=== PATIENT | male | born 1955 | race Caucasian/White ===

== ENCOUNTER → 2016-12-08 | Outpatient (CLI) | payer MEDICAID ==
[~2016-12-08] MED LIST: DIAZ10TA PO; IPRA3AMP NPPB; LEVO750T26 PO; METH500T97 PO; MORP30TA PO; MORP60TA PO; NICO-486 TD
== END | disposition home or self-care (01) ==
LOC: RAD 12:52
PROVIDERS: ATTEND Family Medicine
DX: M25.571 Pain in right ankle and joints of right foot (principal); G89.29 Other chronic pain

== ENCOUNTER 2016-12-09 14:01 | Emergency (ER) | payer MEDICAID ==
[~2016-12-09] VITALS: Ht 188 cm; Wt 86.0 kg
[2016-12-09 14:03] VITALS: BP 114/75
== END 2016-12-09 14:51 | disposition home or self-care (01) ==
LOC: ED 14:30
DX: M25.571 Pain in right ankle and joints of right foot (principal)
CPT/HCPCS: 99281

== ENCOUNTER 2017-02-14 14:03 | Emergency (ER) | payer MEDICAID ==
[~2017-02-14] VITALS: Ht 188 cm; Wt 86.0 kg
[2017-02-14] MEDS ORDERED: KETAMINE 10 MG/ML, 20ML ONE (14:47)
[2017-02-14] MEDS ORDERED: KETAMINE 100 MG/ML, 5ML IV ONE (15:00)
[2017-02-14] MEDS ORDERED: DEXAMETHASONE 4 MG/ML, 5ML ONE (15:44)
[2017-02-14] MEDS ORDERED: DEXAMETHASONE 4 MG/ML, 1ML IVPush ONE (16:00)
[2017-02-14 16:47] VITALS: BP 114/75
== END 2017-02-14 16:52 | disposition home or self-care (01) ==
LOC: ED 16:14
DX: M54.42 Lumbago with sciatica, left side (principal); G89.29 Other chronic pain
CPT/HCPCS: 72148; 96374; 96375; 99284; J1100

== ENCOUNTER 2017-02-17 12:22 | Emergency (ER) | payer MEDICAID ==
[~2017-02-17] VITALS: Ht 188 cm; Wt 86.0 kg
[2017-02-17] MEDS ORDERED: MORP30TA3 PO (12:37)
[2017-02-17] MEDS ORDERED: SODIUM CHLORIDE FLUSH 10ML SYR IVF ONE (13:00)
[2017-02-17] MEDS ORDERED: DIAZEPAM 5 MG/ML, 2ML IVPush ONE (13:00)
[2017-02-17] MEDS ORDERED: SODIUM CHLORIDE 0.9% 1,000ML IV ONE (13:00)
[2017-02-17] MEDS ORDERED: HYDROmorphone 1 MG/ML, 1ML IVPush PRN (13:00)
[2017-02-17] MEDS ORDERED: KETOROLAC 30 MG/1 ML IVPush ONE (13:00)
[2017-02-17] MEDS ORDERED: ONDANSETRON 2MG/ML, 2ML IVPush ONE (13:00)
[2017-02-17] MEDS ORDERED: HYDROmorphone 2 MG/ML, 1ML ONE (13:02)
[2017-02-17] MEDS ORDERED: ONDANSETRON 2MG/ML, 2ML ONE (13:02)
[2017-02-17] MEDS ORDERED: KETOROLAC 30 MG/1 ML ONE (13:02)
[2017-02-17 14:53] VITALS: BP 107/62
== END 2017-02-17 14:55 | disposition home or self-care (01) ==
LOC: ED 14:37
DX: S39.012A Strain of muscle, fascia and tendon of lower back, initial encounter (principal); M54.42 Lumbago with sciatica, left side; X58.XXXA Exposure to other specified factors, initial encounter; Y93.89 Activity, other specified; Y99.8 Other external cause status; Y92.89 Other specified places as the place of occurrence of the external cause
CPT/HCPCS: 96361; 96374; 96375; 99284; J1170; J1885; J2405; J3360; J7030

== ENCOUNTER 2018-09-20 13:25 | Emergency (ER) | payer MEDICARE, MEDICAID ==
[~2018-09-20] VITALS: Ht 188 cm; Wt 89.2 kg
[~2018-09-20 13:25] MED LIST changes: -IPRA3AMP NPPB; +IPRA3AMP30 NPPB; +MORP30TA3 PO
[2018-09-20 13:40] VITALS: BP 142/86
--- NOTE | 2018-09-20 14:07 | NUR ---
THIS IS A 63 YR OLD MALE COMING HOME DUE TO SORE THROAT, HORSE VOICE AND DIFFICULTY SWALLOWING FOR 6 MONTHS BUT GETTING PROGRESSIVELY WORSE. PT IS ALSO EXPERIENCING NUMBNESS AND TINGLING TO LEFT SIDE OF FACE STARTING AT TRAGUS AND GOING TO BOTOM OF JAW LINE. PT HAS BEEN EVALUATED BY PRIMARY CARE AND ENT AND WAS TOLD HE NEEDS A CT SCAN OF HIS NECK.
[2018-09-20] MEDS ORDERED: SODIUM CHLORIDE FLUSH 10ML SYR IVF ONE (14:30)
[2018-09-20 15:06] LABS: BASOPHILS # (AUTO) 0.01 x10^3/uL (0-0.1); BASOPHILS % (AUTO) 0 % (0-1); EOSINOPHILS # (AUTO) 0.56 x10^3/uL (0-0.4); EOSINOPHILS % (AUTO) 6 % (1-7); LYMPHOCYTES # (AUTO) 2.38 x10^3/uL (1-3.4); LYMPHOCYTES % (AUTO) 24 % (22-44); MD NO; MEAN CORPUSCULAR HEMOGLOBIN 30.5 pg (27.5-34.5); MEAN CORPUSCULAR HGB CONC 33.5 g/dL (33.2-36.2); MEAN CORPUSCULAR VOLUME 91.1 fL (81-97); MEAN PLATELET VOLUME 9.9 fL (7.4-10.4); MONOCYTES # (AUTO) 1.09 x10^3/uL (0.2-0.8); MONOCYTES % (AUTO) 11 % (2-9); NEUTROPHILS # (AUTO) 5.72 x10^3/uL (1.8-6.8); NEUTROPHILS % (AUTO) 59 % (42-75); PLATELET COUNT 135 x10^3/uL (130-400); RED BLOOD COUNT 5.51 x10^6/uL (4.38-5.82); RED CELL DISTRIBUTION WIDTH 12.8 % (9.4-14.8)
[2018-09-20 15:15] LABS: ALBUMIN 3.6 g/dL (3.4-5.0); ANION GAP 7 mmol/L (5-15); CHLORIDE 105 mmol/L (98-107); CREATININE 0.71 mg/dL (0.7-1.3)
[2018-09-20] MEDS ORDERED: MORP60CA17 PO (15:20)
[2018-09-20] MEDS ORDERED: OXYC5CAP2 PO (15:20)
[2018-09-20] MEDS ORDERED: CETI10TA32 PO (15:21)
[2018-09-20] MEDS ORDERED: ASPI-496 PO (15:21)
[2018-09-20] MEDS ORDERED: GUAI-110 PO (15:21)
[2018-09-20] MEDS ORDERED: CYCL5TAB PO (15:23)
[2018-09-20] MEDS ORDERED: ALBU6.7H INH (15:23)
[2018-09-20] MEDS ORDERED: FLUT16SP24 NAS (15:25)
[2018-09-20] MEDS ORDERED: METF500T27 PO (15:25)
[2018-09-20] MEDS ORDERED: ESOM40CA PO (15:26)
[2018-09-20] MEDS ORDERED: MIRT15TA4 PO (15:26)
[2018-09-20] MEDS ORDERED: FLUT1BLS3 IH (15:27)
[2018-09-20] MEDS ORDERED: OMEP-110 PO (15:28)
[2018-09-20] MEDS ORDERED: OMNIPAQUE 350 MG/ML, 100ML BOTTLE ONE (15:51)
--- NOTE | 2018-09-20 15:56 | NUR ---
PT RESTING COMFORTABLE. NO COMPLAINTS OF PAIN.
--- NOTE | 2018-09-20 16:58 | NUR ---
Patient given discharge instructions and they have confirmed that they understand the instructions. Patient ambulatory with steady gait.
== END 2018-09-20 17:00 | disposition home or self-care (01) ==
LOC: ED 16:11
DX: C32.9 Malignant neoplasm of larynx, unspecified (principal); E11.9 Type 2 diabetes mellitus without complications; G89.29 Other chronic pain; Z87.81 Personal history of (healed) traumatic fracture
CPT/HCPCS: 36415; 70491; 71046; 80048; 82040; 85025; 99284; Q9967

== ENCOUNTER 2020-05-27 22:53 | Inpatient (IN) | payer MEDICARE, MEDICAID ==
[~2020-05-27] VITALS: Ht 188 cm; Wt 77.4 kg
[~2020-05-27 22:53] MED LIST changes: +ALBU6.7H8 INH; +ASPI-496 PO; +CETI10TA32 PO; +CYCL5TAB PO; +ESOM40CA PO; +FLUT16SP24 NAS; +FLUT1BLS3 IH; +GUAI-110 PO; +METF500T27 PO; +MIRT-34 PO; +MORP-30 PO; -MORP30TA3 PO; +MORP60CA17 PO; -MORP60TA PO; +MORP60TA63 PO; +OMEP-110 PO; +OXYC5CAP2 PO
[2020-05-27] MEDS ORDERED: LIDOCAINE 2%,20 ML JEL.PF.APP MM ONE ×2 (23:10→23:30)
[2020-05-27 23:33] LABS: BASOPHILS % (AUTO) 1 % (0-1); EOSINOPHILS % (AUTO) 8 % (1-7); LYMPHOCYTES % (AUTO) 17 % (22-44); MEAN CORPUSCULAR HEMOGLOBIN 27.8 pg (27.5-34.5); MEAN CORPUSCULAR HGB CONC 34.4 g/dL (33.2-36.2); MEAN PLATELET VOLUME 8.5 fL (7.4-10.4); MONOCYTES % (AUTO) 15 % (2-9); NEUTROPHILS % (AUTO) 58 % (42-75); PLATELET COUNT 116 x10^3/uL (130-400); RED BLOOD COUNT 4.49 x10^6/uL (4.38-5.82); RED CELL DISTRIBUTION WIDTH 13.8 % (9.4-14.8)
[2020-05-27 23:43] LABS: INTERNATIONAL NORMALIZED RATIO 1.07 (0.93-1.1); PROTHROMBIN TIME 11.4 Seconds (9.6-11.5)
[2020-05-27 23:44] LABS: ALANINE AMINOTRANSFERASE 15 U/L (12-78); ALBUMIN 3.2 g/dL (3.4-5.0); ANION GAP 9 mmol/L (5-15); CALCIUM 8.3 mg/dL (8.5-10.1); CHLORIDE 96 mmol/L (98-107); CREATININE 1.17 mg/dL (0.7-1.3)
[2020-05-27] MEDS ORDERED: HYDROmorphone 1 MG/ML, 1ML INJ ONE ×3 (23:45→23:53)
[2020-05-27] MEDS ORDERED: ONDANSETRON 2MG/ML, 2ML ONE (23:45)
[2020-05-27 23:46] LABS: ALKALINE PHOSPHATASE 89 U/L (45-117); BILIRUBIN,TOTAL 0.4 mg/dL (0.2-1.0); TOTAL PROTEIN 7.3 g/dL (6.4-8.2)
[2020-05-27 23:54] LABS: MD SCAN
[2020-05-28] MEDS ORDERED: ONDANSETRON 2MG/ML, 2ML IVPush ONE
[2020-05-28 00:09] LABS: MICROSCOPIC INDICATED
--- NOTE | 2020-05-28 00:33 | NUR ---
pt in bed with no signs or symptoms of acute dsitress noted respirations even and unlabored. pt with mead running cbi, noted clots and blood to output. pt denies need or questions at this time, family member at bedside.call light within reach bed rails up bilaterally.
--- NOTE | 2020-05-28 00:41 | NUR ---
md at bedside to assess, pt able to ask questions. denies need or discomfort at this time. cbi still returning red output with clots, pt states pain is improving. call light within reach, family member at bedside, no signs or symptoms of acute distress noted respirations even and unlabored
[2020-05-28] MEDS ORDERED: HYDROmorphone 1 MG/ML, 1ML INJ IV ONE ×2 (02:00)
--- NOTE | 2020-05-28 02:08 | NUR ---
pt on cbi with noted continued return of bloody output and clots, this rn in room to hand piston mead because it was noted to be irrigating very slowly despite wide open irrigation system. noted more clots returned to output, irrigation now running well. pt complaining of increased bladder pain.
[2020-05-28] MEDS ORDERED: HYDROmorphone 1 MG/ML, 1ML INJ ONE (02:11)
[2020-05-28] MEDS ORDERED: CEFTRIAXONE PMX 1GM/50ML 50 ML ONE (02:11)
--- NOTE | 2020-05-28 02:27 | NUR ---
REPORT CALLED TO THE FLOOR, HOSPITALIST AT BEDSIDE TO ASSESS. PT IN BED WITH CBI RUNNING, WITH BED RAILS UP BILATERALLY AND CALL LIGHT WITHIN REACH. NO SIGNS OR SYMPTOMS OF ACUTE DSITRESS NOTED RESPIRATIONS EVEN AND UNLABORED.
[2020-05-28] MEDS ORDERED: MORPHINE SULFATE 4 MG/ML, 1ML IVPush PRN (02:30)
[2020-05-28] MEDS ORDERED: ONDANSETRON 2MG/ML, 2ML IVPush PRN (02:30)
[2020-05-28] MEDS ORDERED: CEFTRIAXONE PMX 1GM/50ML 50 ML IV ONE (02:30)
[2020-05-28] MEDS ORDERED: LABETALOL 5MG/ML, 20ML IVPush PRN (03:00)
[2020-05-28] MEDS ORDERED: HYDROmorphone 2 MG/ML, 1ML IVPush PRN (03:00)
[2020-05-28 03:11] VITALS: BP 131/77
[2020-05-28] MEDS ORDERED: SODIUM CHLORIDE 0.9% 1,000 ML IV SCH (03:30)
[2020-05-28] MEDS: CYCLOBENZAPRINE 10 MG TABLET PO SCH ×2 (03:46→20:19)
[2020-05-28 05:19] LABS: BASOPHILS % (AUTO) 1 % (0-1); EOSINOPHILS % (AUTO) 5 % (1-7); LYMPHOCYTES % (AUTO) 13 % (22-44); MEAN CORPUSCULAR HEMOGLOBIN 27.7 pg (27.5-34.5); MEAN CORPUSCULAR HGB CONC 34.3 g/dL (33.2-36.2); MEAN PLATELET VOLUME 8.4 fL (7.4-10.4); MONOCYTES % (AUTO) 13 % (2-9); NEUTROPHILS % (AUTO) 68 % (42-75); PLATELET COUNT 107 x10^3/uL (130-400); RED BLOOD COUNT 4.31 x10^6/uL (4.38-5.82)
[2020-05-28 05:24] LABS: MD NO
[2020-05-28 06:01] LABS: ANION GAP 6 mmol/L (5-15); CALCIUM 8.4 mg/dL (8.5-10.1); CHLORIDE 99 mmol/L (98-107); CREATININE 1.12 mg/dL (0.7-1.3)
[2020-05-28] MEDS: NICOTINE 14MG/24 HR PATCH.TD24 TD SCH (06:03)
[2020-05-28 07:30] VITALS: BP 128/77
[2020-05-28] MEDS: PHENAZOPYRIDINE 200 MG TABLET PO SCH ×3 (09:00→20:19)
[2020-05-28] MEDS ORDERED: OPIUM/BELLADONNA SUPP.RECT 16.2-30 MG PR PRN (12:30)
[2020-05-28] MEDS: HYDROmorphone 2 MG/ML, 1ML IVPush PRN ×4 (13:02→23:39)
[2020-05-28 14:22] VITALS: BP 131/75
[2020-05-28 19:45] VITALS: BP 117/72
[2020-05-29 01:02] VITALS: BP 127/70
[2020-05-29] MEDS: CEFTRIAXONE PMX 1GM/50ML 50 ML IV SCH (01:39)
[2020-05-29] MEDS: HYDROmorphone 2 MG/ML, 1ML IVPush PRN ×7 (02:48→22:25)
[2020-05-29] MEDS: NICOTINE 14MG/24 HR PATCH.TD24 TD SCH (05:32)
[2020-05-29] MEDS: SODIUM CHLORIDE 0.9% 1,000 ML IV SCH (05:35)
[2020-05-29 05:40] LABS: BASOPHILS % (AUTO) 1 % (0-1); EOSINOPHILS % (AUTO) 7 % (1-7); LYMPHOCYTES % (AUTO) 13 % (22-44); MEAN CORPUSCULAR HEMOGLOBIN 27.4 pg (27.5-34.5); MEAN CORPUSCULAR HGB CONC 33.7 g/dL (33.2-36.2); MEAN PLATELET VOLUME 8.3 fL (7.4-10.4); MONOCYTES % (AUTO) 15 % (2-9); NEUTROPHILS % (AUTO) 64 % (42-75); PLATELET COUNT 94 x10^3/uL (130-400); RED BLOOD COUNT 4.03 x10^6/uL (4.38-5.82); RED CELL DISTRIBUTION WIDTH 14.2 % (9.4-14.8)
[2020-05-29 05:41] LABS: MD NO
[2020-05-29 05:52] LABS: % IRON SATURATION 9 % (20-55); ANION GAP 7 mmol/L (5-15); CALCIUM 8.3 mg/dL (8.5-10.1); CHLORIDE 100 mmol/L (98-107); CREATININE 0.93 mg/dL (0.7-1.3); IRON LEVEL 33 mcg/dL (65-175); TOTAL IRON BINDING CAPACITY 388 mcg/dL (250-450)
[2020-05-29 06:59] VITALS: BP 122/74
[2020-05-29] MEDS: PHENAZOPYRIDINE 200 MG TABLET PO SCH ×2 (09:05→15:46)
[2020-05-29] MEDS ORDERED: POTASSIUM CHLORIDE 20 MEQ in SODIUM CHLORIDE 0.9% 250 ML IV ONE (09:30)
[2020-05-29] MEDS ORDERED: IRON DEXTRAN COMPLEX 25 MG in SODIUM CHLORIDE 0.9% 50 ML IV ONE (09:30)
[2020-05-29] MEDS: OXYBUTYNIN CHLORIDE 5 MG TABLET PO SCH ×3 (10:05→19:46)
[2020-05-29] MEDS ORDERED: EPINEPHRINE 1 MG/ML, 1ML SQ PRN ×2 (10:30)
[2020-05-29] MEDS ORDERED: HYDROmorphone 2 MG/ML, 1ML IVPush PRN (12:00)
[2020-05-29 12:50] VITALS: BP 118/70
[2020-05-29] MEDS ORDERED: IRON DEXTRAN COMPLEX 1,300 MG in SODIUM CHLORIDE 0.9% 250 ML IV ONE (13:00)
[2020-05-29 19:10] VITALS: BP 99/59
[2020-05-29] MEDS: CYCLOBENZAPRINE 10 MG TABLET PO SCH (19:46)
[2020-05-30] MEDS: SODIUM CHLORIDE 0.9% 1,000 ML IV SCH (01:30)
[2020-05-30] MEDS: CEFTRIAXONE PMX 1GM/50ML 50 ML IV SCH (01:30)
[2020-05-30 01:47] VITALS: BP 104/59
[2020-05-30] MEDS: HYDROmorphone 2 MG/ML, 1ML IVPush PRN ×6 (03:05→22:54)
[2020-05-30 05:09] LABS: BASOPHILS % (AUTO) 1 % (0-1); EOSINOPHILS % (AUTO) 8 % (1-7); LYMPHOCYTES % (AUTO) 14 % (22-44); MEAN CORPUSCULAR HEMOGLOBIN 28.1 pg (27.5-34.5); MEAN CORPUSCULAR HGB CONC 34.3 g/dL (33.2-36.2); MEAN PLATELET VOLUME 8.8 fL (7.4-10.4); MONOCYTES % (AUTO) 13 % (2-9); NEUTROPHILS % (AUTO) 64 % (42-75); PLATELET COUNT 102 x10^3/uL (130-400); RED BLOOD COUNT 3.92 x10^6/uL (4.38-5.82); RED CELL DISTRIBUTION WIDTH 13.9 % (9.4-14.8)
[2020-05-30 05:14] LABS: ALBUMIN 3.1 g/dL (3.4-5.0); ANION GAP 3 mmol/L (5-15); CALCIUM 8.5 mg/dL (8.5-10.1); CHLORIDE 100 mmol/L (98-107)
[2020-05-30 05:17] LABS: CREATININE 0.97 mg/dL (0.7-1.3); MD NO
[2020-05-30] MEDS: OXYBUTYNIN CHLORIDE 5 MG TABLET PO SCH ×4 (06:08→21:20)
[2020-05-30] MEDS: NICOTINE 14MG/24 HR PATCH.TD24 TD SCH (06:19)
[2020-05-30 08:00] VITALS: BP 113/67
[2020-05-30] MEDS ORDERED: POTASSIUM PHOSPHATE 44 MEQ in SODIUM CHLORIDE 0.9% 500 ML IV ONE (09:30)
[2020-05-30 13:25] VITALS: BP 128/80
[2020-05-30 20:16] VITALS: BP 122/78
[2020-05-30] MEDS: CYCLOBENZAPRINE 10 MG TABLET PO SCH (21:20)
[2020-05-31] VITALS: BP 137/89
[2020-05-31] MEDS: OXYBUTYNIN CHLORIDE 5 MG TABLET PO SCH ×4 (04:43→21:10)
[2020-05-31] MEDS: HYDROmorphone 2 MG/ML, 1ML IVPush PRN ×6 (04:44→22:30)
[2020-05-31 04:59] LABS: BASOPHILS % (AUTO) 1 % (0-1); EOSINOPHILS % (AUTO) 1 % (1-7); LYMPHOCYTES % (AUTO) 6 % (22-44); MEAN CORPUSCULAR HEMOGLOBIN 28.1 pg (27.5-34.5); MEAN CORPUSCULAR HGB CONC 34.5 g/dL (33.2-36.2); MEAN PLATELET VOLUME 8.7 fL (7.4-10.4); MONOCYTES % (AUTO) 10 % (2-9); NEUTROPHILS % (AUTO) 83 % (42-75); PLATELET COUNT 118 x10^3/uL (130-400); RED BLOOD COUNT 3.61 x10^6/uL (4.38-5.82); RED CELL DISTRIBUTION WIDTH 14.3 % (9.4-14.8)
[2020-05-31 05:06] LABS: ALBUMIN 3.4 g/dL (3.4-5.0); ANION GAP 8 mmol/L (5-15); CALCIUM 8.7 mg/dL (8.5-10.1); CHLORIDE 100 mmol/L (98-107)
[2020-05-31 05:07] LABS: MD NO
[2020-05-31 05:08] LABS: CREATININE 1.24 mg/dL (0.7-1.3)
[2020-05-31] MEDS: SODIUM CHLORIDE 0.9% 1,000 ML IV SCH ×2 (05:45→23:00)
[2020-05-31] MEDS: CEFTRIAXONE PMX 1GM/50ML 50 ML IV SCH (05:46)
[2020-05-31 06:57] VITALS: BP 117/70
[2020-05-31] MEDS: NICOTINE 14MG/24 HR PATCH.TD24 TD SCH (07:52)
[2020-05-31 11:56] LABS: INTERNATIONAL NORMALIZED RATIO 1.16 (0.93-1.1); PROTHROMBIN TIME 12.4 Seconds (9.6-11.5)
[2020-05-31 12:30] VITALS: BP 117/69
[2020-05-31 13:43] VITALS: BP 130/63
[2020-05-31 20:39] VITALS: BP 100/50
[2020-05-31] MEDS: CYCLOBENZAPRINE 10 MG TABLET PO SCH (21:10)
[2020-06-01] MEDS: PHENAZOPYRIDINE 200 MG TABLET PO PRN ×2 (00:04→10:55)
[2020-06-01 01:03] VITALS: BP 115/55
[2020-06-01] MEDS: CEFTRIAXONE PMX 1GM/50ML 50 ML IV SCH (05:50)
[2020-06-01] MEDS: OXYBUTYNIN CHLORIDE 5 MG TABLET PO SCH ×4 (06:00→21:41)
[2020-06-01 06:47] VITALS: BP 99/58
[2020-06-01] MEDS: NICOTINE 14MG/24 HR PATCH.TD24 TD SCH (07:38)
[2020-06-01] MEDS: HYDROmorphone 2 MG/ML, 1ML IVPush PRN ×4 (07:38→20:09)
[2020-06-01 10:05] LABS: BASOPHILS % (AUTO) 1 % (0-1); EOSINOPHILS % (AUTO) 5 % (1-7); LYMPHOCYTES % (AUTO) 14 % (22-44); MD NO; MEAN CORPUSCULAR HEMOGLOBIN 27.5 pg (27.5-34.5); MEAN CORPUSCULAR HGB CONC 33.4 g/dL (33.2-36.2); MEAN PLATELET VOLUME 8.8 fL (7.4-10.4); MONOCYTES % (AUTO) 12 % (2-9); NEUTROPHILS % (AUTO) 69 % (42-75); PLATELET COUNT 133 x10^3/uL (130-400); RED BLOOD COUNT 3.56 x10^6/uL (4.38-5.82); RED CELL DISTRIBUTION WIDTH 14.4 % (9.4-14.8)
[2020-06-01 10:40] LABS: INTERNATIONAL NORMALIZED RATIO 1.1 (0.93-1.1); PROTHROMBIN TIME 11.8 Seconds (9.6-11.5)
[2020-06-01 12:57] VITALS: BP 99/61
[2020-06-01] MEDS: SODIUM CHLORIDE 0.9% 1,000 ML IV SCH (14:16)
[2020-06-01] MEDS: ONDANSETRON 2MG/ML, 2ML IVPush PRN (14:21)
[2020-06-01 19:53] VITALS: BP 105/61
[2020-06-01] MEDS: CYCLOBENZAPRINE 10 MG TABLET PO SCH (21:41)
[2020-06-02 01:29] VITALS: BP 111/60
[2020-06-02] MEDS: HYDROmorphone 2 MG/ML, 1ML IVPush PRN ×6 (01:39→23:01)
[2020-06-02 05:13] LABS: BASOPHILS % (AUTO) 0 % (0-1); EOSINOPHILS % (AUTO) 4 % (1-7); LYMPHOCYTES % (AUTO) 10 % (22-44); MEAN CORPUSCULAR HEMOGLOBIN 27.6 pg (27.5-34.5); MEAN CORPUSCULAR HGB CONC 33.2 g/dL (33.2-36.2); MEAN PLATELET VOLUME 8.4 fL (7.4-10.4); MONOCYTES % (AUTO) 13 % (2-9); NEUTROPHILS % (AUTO) 72 % (42-75); PLATELET COUNT 101 x10^3/uL (130-400); RED BLOOD COUNT 3.13 x10^6/uL (4.38-5.82); RED CELL DISTRIBUTION WIDTH 14.7 % (9.4-14.8)
[2020-06-02 05:14] LABS: MD NO
[2020-06-02 05:26] LABS: ALBUMIN 2.7 g/dL (3.4-5.0); ANION GAP 4 mmol/L (5-15); CHLORIDE 103 mmol/L (98-107)
[2020-06-02] MEDS: OXYBUTYNIN CHLORIDE 5 MG TABLET PO SCH ×4 (06:00→21:30)
[2020-06-02] MEDS: CEFTRIAXONE PMX 1GM/50ML 50 ML IV SCH (06:31)
[2020-06-02 07:29] VITALS: BP 92/50
[2020-06-02] MEDS ORDERED: MAGNESIUM SULFATE PMX 2GM/50ML 50 ML IV ONE (08:30)
[2020-06-02] MEDS ORDERED: POTASSIUM PHOSPHATE 44 MEQ in SODIUM CHLORIDE 0.9% 500 ML IV ONE (08:30)
[2020-06-02] MEDS: NICOTINE 14MG/24 HR PATCH.TD24 TD SCH (09:16)
[2020-06-02 13:04] VITALS: BP 105/64
[2020-06-02] MEDS: PIPERACILLIN/TAZO/PMX 3.375GM 50 ML IV SCH ×2 (14:29→21:56)
[2020-06-02] MEDS: OPIUM/BELLADONNA SUPP.RECT 16.2-30 MG PR PRN (17:20)
[2020-06-02 18:34] VITALS: BP 103/60
[2020-06-02] MEDS: PHENAZOPYRIDINE 200 MG TABLET PO PRN (21:30)
[2020-06-02] MEDS: CYCLOBENZAPRINE 10 MG TABLET PO SCH (21:30)
[2020-06-03] MEDS: HYDROmorphone 2 MG/ML, 1ML IVPush PRN ×6 (02:06→22:21)
[2020-06-03 03:55] VITALS: BP 94/52
[2020-06-03 04:56] LABS: BASOPHILS % (AUTO) 1 % (0-1); EOSINOPHILS % (AUTO) 7 % (1-7); LYMPHOCYTES % (AUTO) 13 % (22-44); MEAN CORPUSCULAR HEMOGLOBIN 28.3 pg (27.5-34.5); MEAN CORPUSCULAR HGB CONC 33.8 g/dL (33.2-36.2); MEAN PLATELET VOLUME 8.6 fL (7.4-10.4); MONOCYTES % (AUTO) 16 % (2-9); NEUTROPHILS % (AUTO) 64 % (42-75); PLATELET COUNT 96 x10^3/uL (130-400); RED BLOOD COUNT 2.76 x10^6/uL (4.38-5.82); RED CELL DISTRIBUTION WIDTH 14.6 % (9.4-14.8)
[2020-06-03 05:04] LABS: MD NO
[2020-06-03 05:06] LABS: ALBUMIN 2.7 g/dL (3.4-5.0); ANION GAP 4 mmol/L (5-15); CALCIUM 7.9 mg/dL (8.5-10.1); CHLORIDE 101 mmol/L (98-107); CREATININE 1.28 mg/dL (0.7-1.3)
[2020-06-03] MEDS: PIPERACILLIN/TAZO/PMX 3.375GM 50 ML IV SCH ×3 (05:41→21:34)
[2020-06-03] MEDS: OXYBUTYNIN CHLORIDE 5 MG TABLET PO SCH ×4 (05:41→21:35)
[2020-06-03 06:55] VITALS: BP 104/54
[2020-06-03] MEDS: NICOTINE 14MG/24 HR PATCH.TD24 TD SCH (08:27)
[2020-06-03] MEDS: ONDANSETRON 2MG/ML, 2ML IVPush PRN (10:04)
[2020-06-03 12:45] VITALS: BP 104/54
[2020-06-03 18:40] VITALS: BP 123/68
[2020-06-03] MEDS: ACETAMINOPHEN 325 MG TABLET PO PRN (21:34)
[2020-06-03] MEDS: PHENAZOPYRIDINE 200 MG TABLET PO PRN (21:34)
[2020-06-03] MEDS: CYCLOBENZAPRINE 10 MG TABLET PO SCH (21:35)
[2020-06-04 01:32] VITALS: BP 126/68
[2020-06-04] MEDS: HYDROmorphone 2 MG/ML, 1ML IVPush PRN ×6 (01:47→20:20)
[2020-06-04 04:51] LABS: BASOPHILS % (AUTO) 0 % (0-1); EOSINOPHILS % (AUTO) 6 % (1-7); LYMPHOCYTES % (AUTO) 12 % (22-44); MEAN CORPUSCULAR HGB CONC 33.5 g/dL (33.2-36.2); MEAN PLATELET VOLUME 8.5 fL (7.4-10.4); MONOCYTES % (AUTO) 14 % (2-9); NEUTROPHILS % (AUTO) 68 % (42-75); PLATELET COUNT 88 x10^3/uL (130-400); RED BLOOD COUNT 2.97 x10^6/uL (4.38-5.82); RED CELL DISTRIBUTION WIDTH 14.9 % (9.4-14.8)
[2020-06-04 04:54] LABS: ALBUMIN 2.6 g/dL (3.4-5.0); CALCIUM 8.2 mg/dL (8.5-10.1); CREATININE 1.21 mg/dL (0.7-1.3)
[2020-06-04 05:04] LABS: ANION GAP 5 mmol/L (5-15); CHLORIDE 99 mmol/L (98-107); MD NO
[2020-06-04] MEDS: OXYBUTYNIN CHLORIDE 5 MG TABLET PO SCH ×4 (05:17→20:20)
[2020-06-04] MEDS: PIPERACILLIN/TAZO/PMX 3.375GM 50 ML IV SCH ×3 (05:17→21:58)
[2020-06-04] MEDS: PHENAZOPYRIDINE 200 MG TABLET PO PRN ×2 (06:12→20:20)
[2020-06-04 06:53] VITALS: BP 117/55
[2020-06-04] MEDS: NICOTINE 14MG/24 HR PATCH.TD24 TD SCH (09:23)
[2020-06-04 12:48] VITALS: BP 130/76
[2020-06-04 19:23] VITALS: BP 117/61
[2020-06-04] MEDS: CYCLOBENZAPRINE 10 MG TABLET PO SCH (20:21)
[2020-06-05 02:51] VITALS: BP 124/69
[2020-06-05] MEDS: HYDROmorphone 2 MG/ML, 1ML IVPush PRN ×5 (02:55→20:19)
[2020-06-05] MEDS: OPIUM/BELLADONNA SUPP.RECT 16.2-30 MG PR PRN (03:50)
[2020-06-05] MEDS: PIPERACILLIN/TAZO/PMX 3.375GM 50 ML IV SCH ×3 (05:17→22:54)
[2020-06-05] MEDS: OXYBUTYNIN CHLORIDE 5 MG TABLET PO SCH ×4 (05:43→21:18)
[2020-06-05 06:48] VITALS: BP 114/60
[2020-06-05] MEDS: NICOTINE 14MG/24 HR PATCH.TD24 TD SCH (07:48)
[2020-06-05] MEDS: PHENAZOPYRIDINE 200 MG TABLET PO PRN ×2 (08:08→22:27)
[2020-06-05 13:33] VITALS: BP 129/60
[2020-06-05 18:42] VITALS: BP 107/62
[2020-06-05] MEDS: ONDANSETRON 2MG/ML, 2ML IVPush PRN (20:27)
[2020-06-05] MEDS: CYCLOBENZAPRINE 10 MG TABLET PO SCH (21:18)
[2020-06-06] MEDS: HYDROmorphone 2 MG/ML, 1ML IVPush PRN ×7 (01:15→23:56)
[2020-06-06 01:26] VITALS: BP 105/54
[2020-06-06 05:10] LABS: BASOPHILS % (AUTO) 1 % (0-1); EOSINOPHILS % (AUTO) 5 % (1-7); LYMPHOCYTES % (AUTO) 8 % (22-44); MEAN CORPUSCULAR HEMOGLOBIN 28.5 pg (27.5-34.5); MEAN CORPUSCULAR HGB CONC 33.7 g/dL (33.2-36.2); MEAN PLATELET VOLUME 8.8 fL (7.4-10.4); MONOCYTES % (AUTO) 14 % (2-9); NEUTROPHILS % (AUTO) 73 % (42-75); PLATELET COUNT 113 x10^3/uL (130-400); RED BLOOD COUNT 3.11 x10^6/uL (4.38-5.82); RED CELL DISTRIBUTION WIDTH 15.5 % (9.4-14.8)
[2020-06-06 05:11] LABS: MD NO
[2020-06-06 05:22] LABS: ANION GAP 5 mmol/L (5-15); CALCIUM 8.5 mg/dL (8.5-10.1); CHLORIDE 95 mmol/L (98-107)
[2020-06-06 05:26] LABS: CREATININE 1.15 mg/dL (0.7-1.3)
[2020-06-06] MEDS: OXYBUTYNIN CHLORIDE 5 MG TABLET PO SCH ×4 (06:00→20:59)
[2020-06-06 06:58] VITALS: BP 99/55
[2020-06-06] MEDS ORDERED: MORPHINE SULFATE 4 MG/ML, 1ML IVPush PRN (07:00)
[2020-06-06] MEDS: PIPERACILLIN/TAZO/PMX 3.375GM 50 ML IV SCH ×3 (07:35→23:13)
[2020-06-06] MEDS: NICOTINE 14MG/24 HR PATCH.TD24 TD SCH (08:44)
[2020-06-06 12:18] VITALS: BP 110/57
[2020-06-06 20:03] VITALS: BP 103/54
[2020-06-06] MEDS: CYCLOBENZAPRINE 10 MG TABLET PO SCH (20:59)
[2020-06-07 03:15] VITALS: BP 125/71
[2020-06-07] MEDS: HYDROmorphone 2 MG/ML, 1ML IVPush PRN ×2 (03:18→06:25)
[2020-06-07 04:49] LABS: BASOPHILS % (AUTO) 1 % (0-1); EOSINOPHILS % (AUTO) 5 % (1-7); LYMPHOCYTES % (AUTO) 10 % (22-44); MEAN CORPUSCULAR HEMOGLOBIN 28.3 pg (27.5-34.5); MEAN CORPUSCULAR HGB CONC 33.8 g/dL (33.2-36.2); MEAN PLATELET VOLUME 8.3 fL (7.4-10.4); MONOCYTES % (AUTO) 13 % (2-9); NEUTROPHILS % (AUTO) 72 % (42-75); PLATELET COUNT 169 x10^3/uL (130-400); RED BLOOD COUNT 3.27 x10^6/uL (4.38-5.82); RED CELL DISTRIBUTION WIDTH 15.5 % (9.4-14.8)
[2020-06-07 04:52] LABS: MD NO
[2020-06-07 05:02] LABS: CALCIUM 8.9 mg/dL (8.5-10.1); CREATININE 1.28 mg/dL (0.7-1.3)
[2020-06-07 05:10] LABS: ANION GAP 4 mmol/L (5-15); CHLORIDE 96 mmol/L (98-107)
[2020-06-07] MEDS: OXYBUTYNIN CHLORIDE 5 MG TABLET PO SCH ×4 (06:18→21:09)
[2020-06-07] MEDS: NICOTINE 14MG/24 HR PATCH.TD24 TD SCH (08:15)
[2020-06-07] MEDS: PIPERACILLIN/TAZO/PMX 3.375GM 50 ML IV SCH ×3 (08:16→23:10)
[2020-06-07 08:25] VITALS: BP 104/52
[2020-06-07] MEDS ORDERED: PROPOFOL 10 MG/ML, 20ML ONE (10:15)
[2020-06-07] MEDS ORDERED: ONDANSETRON 2MG/ML, 2ML ONE (10:15)
[2020-06-07] MEDS ORDERED: CEFAZOLIN 1,000 MG ONE (10:15)
[2020-06-07] MEDS ORDERED: GLYCOPYRROLATE 0.2MG/1ML, 5ML ONE (10:15)
[2020-06-07] MEDS ORDERED: SUCCINYLCHOLINE 20 MG/ML, 10ML ONE (10:15)
[2020-06-07] MEDS ORDERED: ROCURONIUM 10 MG/ML,10ML ONE (10:15)
[2020-06-07] MEDS ORDERED: NEOSTIGMINE 1 MG/ML, 10ML ONE (10:15)
[2020-06-07] MEDS ORDERED: FENTANYL PF 100 MCG/2ML ONE ×2 (10:17→11:51)
[2020-06-07] MEDS ORDERED: MIDAZOLAM 1 MG/ML, 2ML ONE (10:26)
[2020-06-07] MEDS: FENTANYL PF 100 MCG/2ML IV PRN ×2 (11:50→12:05)
[2020-06-07] MEDS ORDERED: OXYcodone 5 MG/5 ML ORAL.SOL UDC ONE (11:51)
[2020-06-07] MEDS ORDERED: HYDROmorphone 2 MG/ML, 1ML ONE (12:11)
[2020-06-07] MEDS: HYDROmorphone 1 MG/ML, 1ML INJ IVPush PRN ×4 (12:15→12:42)
[2020-06-07] MEDS ORDERED: OPIUM/BELLADONNA SUPP.RECT 16.2-60 MG PR STA (12:24)
[2020-06-07] MEDS ORDERED: OPIUM/BELLADONNA SUPP.RECT 16.2-60 MG ONE (12:25)
[2020-06-07] MEDS ORDERED: hydrALAzine 20 MG/ML, 1ML IV PRN (12:30)
[2020-06-07] MEDS ORDERED: LABETALOL 5MG/ML, 20ML IV PRN (12:30)
[2020-06-07] MEDS ORDERED: OXYcodone 5 MG/5 ML ORAL.SOL UDC PO PRN (12:30)
[2020-06-07] MEDS ORDERED: ONDANSETRON 2MG/ML, 2ML IVPush PRN (12:30)
[2020-06-07] MEDS ORDERED: PROMETHAZINE 25 MG/ML, 1ML IVPush PRN (12:30)
[2020-06-07] MEDS ORDERED: LORazepam 2 MG/ML, 1ML IVPush PRN (12:30)
[2020-06-07 14:45] VITALS: BP 133/68
[2020-06-07 20:03] VITALS: BP 105/65
[2020-06-07] MEDS: ACETAMINOPHEN 325 MG TABLET PO PRN (21:09)
[2020-06-07] MEDS: CYCLOBENZAPRINE 10 MG TABLET PO SCH (21:09)
[2020-06-08 00:45] VITALS: BP 103/53
[2020-06-08] MEDS: OXYBUTYNIN CHLORIDE 5 MG TABLET PO SCH ×4 (05:51→21:16)
[2020-06-08] MEDS: PIPERACILLIN/TAZO/PMX 3.375GM 50 ML IV SCH (06:43)
[2020-06-08 07:20] VITALS: BP 126/66
[2020-06-08 07:49] LABS: BASOPHILS % (AUTO) 1 % (0-1); EOSINOPHILS % (AUTO) 8 % (1-7); LYMPHOCYTES % (AUTO) 11 % (22-44); MEAN CORPUSCULAR HEMOGLOBIN 27.9 pg (27.5-34.5); MONOCYTES % (AUTO) 12 % (2-9); NEUTROPHILS % (AUTO) 69 % (42-75); PLATELET COUNT 134 x10^3/uL (130-400); RED BLOOD COUNT 3.17 x10^6/uL (4.38-5.82); RED CELL DISTRIBUTION WIDTH 16.1 % (9.4-14.8)
[2020-06-08 07:50] LABS: MD NO
[2020-06-08] MEDS: NICOTINE 14MG/24 HR PATCH.TD24 TD SCH (09:12)
[2020-06-08 12:08] VITALS: BP 109/65
[2020-06-08] MEDS: HYDROmorphone 2 MG/ML, 1ML IVPush PRN ×2 (12:41→16:32)
[2020-06-08 18:26] VITALS: BP 109/67
[2020-06-08] MEDS: CYCLOBENZAPRINE 10 MG TABLET PO SCH (21:16)
[2020-06-09 00:22] VITALS: BP 124/68
[2020-06-09] MEDS: OXYBUTYNIN CHLORIDE 5 MG TABLET PO SCH ×4 (06:20→20:51)
[2020-06-09 06:40] VITALS: BP 119/67
[2020-06-09 06:49] LABS: BASOPHILS % (AUTO) 0 % (0-1); EOSINOPHILS % (AUTO) 5 % (1-7); LYMPHOCYTES % (AUTO) 9 % (22-44); MD NO; MEAN CORPUSCULAR HGB CONC 33.2 g/dL (33.2-36.2); MEAN PLATELET VOLUME 8.3 fL (7.4-10.4); MONOCYTES % (AUTO) 11 % (2-9); NEUTROPHILS % (AUTO) 75 % (42-75); PLATELET COUNT 158 x10^3/uL (130-400); RED BLOOD COUNT 3.15 x10^6/uL (4.38-5.82); RED CELL DISTRIBUTION WIDTH 16.2 % (9.4-14.8)
[2020-06-09 06:54] LABS: ANION GAP 5 mmol/L (5-15); CALCIUM 8.9 mg/dL (8.5-10.1); CHLORIDE 102 mmol/L (98-107); CREATININE 1.08 mg/dL (0.7-1.3)
[2020-06-09] MEDS ORDERED: POTASSIUM CHLORIDE 20 MEQ TAB.ER.PRT PO ONE (07:30)
[2020-06-09] MEDS: NICOTINE 14MG/24 HR PATCH.TD24 TD SCH (09:05)
[2020-06-09 13:40] VITALS: BP 135/72
[2020-06-09] MEDS ORDERED: FLUMAZENIL 0.1 MG/1 ML, 5ML ONE (14:09)
[2020-06-09] MEDS ORDERED: FENTANYL PF 100 MCG/2ML ONE (14:09)
[2020-06-09] MEDS ORDERED: MIDAZOLAM 1 MG/ML, 5ML ONE ×2 (14:09)
[2020-06-09] MEDS ORDERED: NALOXONE 1 MG/ML, 2ML ONE (14:10)
[2020-06-09] MEDS ORDERED: LIDOCAINE 1%, 10ML ONE (14:36)
[2020-06-09] MEDS: HYDROmorphone 2 MG/ML, 1ML IVPush PRN ×4 (16:01→23:50)
[2020-06-09 18:56] VITALS: BP 103/58
[2020-06-09] MEDS: CYCLOBENZAPRINE 10 MG TABLET PO SCH (20:51)
[2020-06-10 02:50] VITALS: BP 115/65
[2020-06-10 05:08] LABS: BASOPHILS % (AUTO) 1 % (0-1); EOSINOPHILS % (AUTO) 7 % (1-7); LYMPHOCYTES % (AUTO) 14 % (22-44); MD NO; MEAN CORPUSCULAR HEMOGLOBIN 28.1 pg (27.5-34.5); MEAN CORPUSCULAR HGB CONC 33.7 g/dL (33.2-36.2); MEAN PLATELET VOLUME 8.2 fL (7.4-10.4); MONOCYTES % (AUTO) 12 % (2-9); NEUTROPHILS % (AUTO) 66 % (42-75); PLATELET COUNT 119 x10^3/uL (130-400); RED BLOOD COUNT 2.82 x10^6/uL (4.38-5.82); RED CELL DISTRIBUTION WIDTH 16.5 % (9.4-14.8)
[2020-06-10 05:19] LABS: ALBUMIN 2.4 g/dL (3.4-5.0); ANION GAP 6 mmol/L (5-15); CALCIUM 8.7 mg/dL (8.5-10.1); CHLORIDE 102 mmol/L (98-107)
[2020-06-10 05:22] LABS: ALANINE AMINOTRANSFERASE 15 U/L (12-78); ALKALINE PHOSPHATASE 79 U/L (45-117); BILIRUBIN,TOTAL 0.3 mg/dL (0.2-1.0); CREATININE 1.02 mg/dL (0.7-1.3); TOTAL PROTEIN 6.3 g/dL (6.4-8.2)
[2020-06-10] MEDS: OXYBUTYNIN CHLORIDE 5 MG TABLET PO SCH ×4 (06:13→20:24)
[2020-06-10 07:04] VITALS: BP 127/61
[2020-06-10] MEDS: NICOTINE 14MG/24 HR PATCH.TD24 TD SCH (08:48)
[2020-06-10] MEDS: HYDROmorphone 2 MG/ML, 1ML IVPush PRN ×4 (08:48→22:47)
[2020-06-10 12:02] VITALS: BP 111/68
[2020-06-10 18:45] VITALS: BP 124/68
[2020-06-10] MEDS: CYCLOBENZAPRINE 10 MG TABLET PO SCH (20:24)
[2020-06-11 01:29] VITALS: BP 129/66
[2020-06-11] MEDS: OXYBUTYNIN CHLORIDE 5 MG TABLET PO SCH ×4 (06:13→20:43)
[2020-06-11 06:47] VITALS: BP 127/64
[2020-06-11] MEDS: NICOTINE 14MG/24 HR PATCH.TD24 TD SCH (08:34)
[2020-06-11] MEDS: HYDROmorphone 2 MG/ML, 1ML IVPush PRN ×5 (10:19→23:55)
[2020-06-11] MEDS: ENOXAPARIN 40 MG/0.4 ML SQ SCH (11:58)
[2020-06-11 12:24] VITALS: BP 131/72
[2020-06-11] MEDS ORDERED: OMNIPAQUE 350 MG/ML, 100ML BOTTLE ONE (13:16)
[2020-06-11] MEDS: OPIUM/BELLADONNA SUPP.RECT 16.2-30 MG PR PRN (14:02)
[2020-06-11 14:44] LABS: ALANINE AMINOTRANSFERASE 16 U/L (12-78); ALBUMIN 2.5 g/dL (3.4-5.0); ANION GAP 4 mmol/L (5-15); CALCIUM 8.4 mg/dL (8.5-10.1); CHLORIDE 99 mmol/L (98-107); CREATININE 1.14 mg/dL (0.7-1.3)
[2020-06-11 14:46] LABS: ALKALINE PHOSPHATASE 85 U/L (45-117); BILIRUBIN,TOTAL 0.3 mg/dL (0.2-1.0); TOTAL PROTEIN 6.6 g/dL (6.4-8.2)
[2020-06-11 14:58] LABS: MICROSCOPIC AUTO
[2020-06-11 18:56] VITALS: BP 128/68
[2020-06-11] MEDS: CYCLOBENZAPRINE 10 MG TABLET PO SCH (20:43)
[2020-06-12 00:12] VITALS: BP 152/62
[2020-06-12] MEDS: HYDROmorphone 2 MG/ML, 1ML IVPush PRN ×2 (02:59→06:18)
[2020-06-12 05:33] LABS: BASOPHILS % (AUTO) 0 % (0-1); EOSINOPHILS % (AUTO) 6 % (1-7); LYMPHOCYTES % (AUTO) 11 % (22-44); MEAN CORPUSCULAR HEMOGLOBIN 28.5 pg (27.5-34.5); MEAN CORPUSCULAR HGB CONC 34.1 g/dL (33.2-36.2); MEAN PLATELET VOLUME 8.8 fL (7.4-10.4); MONOCYTES % (AUTO) 10 % (2-9); NEUTROPHILS % (AUTO) 73 % (42-75); PLATELET COUNT 131 x10^3/uL (130-400); RED BLOOD COUNT 2.96 x10^6/uL (4.38-5.82); RED CELL DISTRIBUTION WIDTH 16.8 % (9.4-14.8)
[2020-06-12] MEDS: OXYBUTYNIN CHLORIDE 5 MG TABLET PO SCH ×4 (05:46→20:27)
[2020-06-12 05:47] LABS: MD NO
[2020-06-12 05:53] LABS: CHLORIDE 97 mmol/L (98-107)
[2020-06-12 06:00] LABS: ALANINE AMINOTRANSFERASE 15 U/L (12-78); ALBUMIN 2.6 g/dL (3.4-5.0); ALKALINE PHOSPHATASE 90 U/L (45-117); ANION GAP 6 mmol/L (5-15); BILIRUBIN,TOTAL 0.4 mg/dL (0.2-1.0); CALCIUM 8.5 mg/dL (8.5-10.1); CREATININE 1.05 mg/dL (0.7-1.3); TOTAL PROTEIN 6.6 g/dL (6.4-8.2)
[2020-06-12 07:24] VITALS: BP 122/63
[2020-06-12] MEDS: NICOTINE 14MG/24 HR PATCH.TD24 TD SCH (08:32)
[2020-06-12] MEDS ORDERED: OMNIPAQUE 350 MG/ML, 150 ML BOTTLE ONE (09:10)
[2020-06-12] MEDS ORDERED: HYDROmorphone 2MG TABLET ONE ×3 (09:23→22:29)
[2020-06-12] MEDS: HYDROmorphone 4MG TABLET PO PRN ×3 (09:26→22:30)
[2020-06-12] MEDS: ENOXAPARIN 40 MG/0.4 ML SQ SCH ×2 (11:31→11:32)
[2020-06-12 12:45] VITALS: BP 145/69
[2020-06-12 19:12] VITALS: BP 122/66
[2020-06-12] MEDS: CYCLOBENZAPRINE 10 MG TABLET PO SCH (20:27)
[2020-06-12] MEDS: DIAZEPAM 5 MG TABLET PO PRN (23:23)
[2020-06-13 01:04] VITALS: BP 122/63
[2020-06-13] MEDS ORDERED: HYDROmorphone 2MG TABLET ONE ×3 (05:43→16:33)
[2020-06-13] MEDS: HYDROmorphone 4MG TABLET PO PRN ×3 (05:44→17:01)
[2020-06-13] MEDS: OXYBUTYNIN CHLORIDE 5 MG TABLET PO SCH ×3 (06:35→15:44)
[2020-06-13 07:41] VITALS: BP 117/68
[2020-06-13 08:04] LABS: ANION GAP 5 mmol/L (5-15); CALCIUM 8.5 mg/dL (8.5-10.1); CHLORIDE 99 mmol/L (98-107)
[2020-06-13 08:07] LABS: CREATININE 1.13 mg/dL (0.7-1.3)
[2020-06-13] MEDS: NICOTINE 14MG/24 HR PATCH.TD24 TD SCH (08:17)
[2020-06-13] MEDS ORDERED: AMOXICILLIN/CLAV 875-125MG TABLET PO SCH (11:00)
[2020-06-13] MEDS: DIAZEPAM 5 MG TABLET PO PRN (11:18)
[2020-06-13] MEDS: ENOXAPARIN 40 MG/0.4 ML SQ SCH (11:18)
[2020-06-13] MEDS ORDERED: OPIU1SUP2 PR ×2 (11:58→12:04)
[2020-06-13] MEDS ORDERED: PHEN-583 PO (11:58)
[2020-06-13] MEDS ORDERED: AMOX1TAB12 PO (11:58)
[2020-06-13] MEDS ORDERED: OXYB5TAB10 PO (11:58)
== END 2020-06-13 18:00 | disposition home or self-care (01) | DRG 665 ==
LOC: ED 05-28 00:03 → EDIP 05-28 02:17 → 3N 05-28 02:44 → 4NW 05-31 13:24
PROVIDERS: ADMIT Family Medicine; ATTEND Hospitalist
PROC: 0T9B70Z Drainage of Bladder with Drainage Device, Via Natural or Artificial Opening (ICD-10-PCS; 2020-05-28)
PROC: 0VB08ZZ Excision of Prostate, Via Natural or Artificial Opening Endoscopic (ICD-10-PCS; 2020-06-07)
PROC: 0TCB8ZZ Extirpation of Matter from Bladder, Via Natural or Artificial Opening Endoscopic (ICD-10-PCS; 2020-06-07)
PROC: 0TBB8ZZ Excision of Bladder, Via Natural or Artificial Opening Endoscopic (ICD-10-PCS; principal; 2020-06-07 10:00)
DX: C67.9 Malignant neoplasm of bladder, unspecified (principal); J18.9 Pneumonia, unspecified organism; E87.1 Hypo-osmolality and hyponatremia; D62 Acute posthemorrhagic anemia; E46 Unspecified protein-calorie malnutrition; F11.20 Opioid dependence, uncomplicated; N13.6 Pyonephrosis; Z20.822 Contact with and (suspected) exposure to COVID-19; R31.0 Gross hematuria; N32.0 Bladder-neck obstruction; R39.89 Other symptoms and signs involving the genitourinary system; B19.20 Unspecified viral hepatitis C without hepatic coma; C14.0 Malignant neoplasm of pharynx, unspecified; D69.6 Thrombocytopenia, unspecified; E11.9 Type 2 diabetes mellitus without complications; E86.1 Hypovolemia; F17.210 Nicotine dependence, cigarettes, uncomplicated; G89.29 Other chronic pain; K74.60 Unspecified cirrhosis of liver; K80.20 Calculus of gallbladder without cholecystitis without obstruction; N40.1 Benign prostatic hyperplasia with lower urinary tract symptoms; R33.8 Other retention of urine; Z80.0 Family history of malignant neoplasm of digestive organs; Z85.038 Personal history of other malignant neoplasm of large intestine; Z85.819 Personal history of malignant neoplasm of unspecified site of lip, oral cavity, and pharynx; Z90.49 Acquired absence of other specified parts of digestive tract; Z68.21 Body mass index [BMI] 21.0-21.9, adult
CPT/HCPCS: 36415; 71045; 74177; 74178; 75889; 76705; 76937; 80048; 80053; 80069; 81001; 82140; 83036; 83540; 83550; 83735; 85014; 85018; 85025; 85610; 87086; 87635; 88307; 96374; 96375; 99156; 99157; 99291; G0378; J0690; J0696; J1170; J1650; J1750; J2250; J2405; J2543; J2704; J2710; J3010; J3480; Q9967; J0330; J2310; J3475; J7030; J7040; J7050

== ENCOUNTER 2020-09-15 13:13 | Emergency (ER) | payer MEDICARE, MEDICAID ==
[~2020-09-15] VITALS: Ht 188 cm; Wt 62.3 kg
[~2020-09-15 13:13] MED LIST changes: +ACID1TAB7 PO; +AMOX1TAB12 PO; +BISA10SU4 PR; +CARV3.1212 PO; +CYCL10TA2 PO; +DICY10CA3 PO; +DOXY100C2 PO; +INSU100I11 SQ-INSULIN; +MELA5TAB14 PO; +METO10TA82 PO; +MIRT-14 PO; -MIRT-34 PO; +MORPHINE PO; +OPIU1SUP2 PR; +OXYB5TAB10 PO; +PHEN-583 PO; +POLY17PO27 PO; +PREG25CA PO; +SENN176S PO; +Tpn Per Pharmacy MC
--- NOTE | 2020-09-15 13:16 | NUR ---
NO ANSWER FROM LOBBY TO TRIAGE.
[2020-09-15] MEDS ORDERED: DIPH,PERTUSS(ACELL),TET VAC/PF 0.5 ML IM-VACC ONE ×2 (14:00→15:18)
[2020-09-15] MEDS ORDERED: LIDOCAINE-MPF 1%, 5ML INFIL ONE (14:00)
--- NOTE | 2020-09-15 15:14 | NUR ---
reproduction specialist: Pt ambulatory to room from lobby at this time.
[2020-09-15] MEDS ORDERED: LIDOCAINE-MPF 1%, 5ML ONE (15:18)
--- NOTE | 2020-09-15 15:19 | NUR ---
PT AMBULATORY TO ROOM 26 W/ C/O L SIDE FOREHEAD LAC AFTER PT STATES HE ROLLED OFF BED AND HIT HEAD ON CORNER OF BEDSIDE TABLE. PT DENIES USE OF BLOOD THINNERS. DENIES LOC. PT STATES C/O CASTRO. NEURO INTACT. PT RESTING ON GURNEY. NADN. MONITORS APPLIED. VSS. WARM BLANKET PROVIDED. CALL LIGHT IN REACH.
--- NOTE | 2020-09-15 15:36 | NUR ---
PT TAKEN TO CT IN STABLE CONDITION.
--- NOTE | 2020-09-15 16:01 | NUR ---
PT CHART REVIEWED AND PLACED FOR RECHECK.
--- NOTE | 2020-09-15 16:23 | NUR ---
PT RESTING ON GURNEY. NADN. MEADE.
[2020-09-15] MEDS ORDERED: KETOROLAC 30 MG/1 ML ONE (16:26)
[2020-09-15] MEDS ORDERED: KETOROLAC 30 MG/1 ML IM ONE (16:30)
[2020-09-15 17:16] VITALS: BP 108/66
[2020-09-15] MEDS ORDERED: NEOSPORIN OINT. PKT 1 PACKET ONE (17:20)
== END 2020-09-15 17:47 | disposition left against medical advice (07) ==
LOC: ED 17:40
DX: S01.81XA Laceration without foreign body of other part of head, initial encounter (principal); M54.2 Cervicalgia; I10 Essential (primary) hypertension; E11.9 Type 2 diabetes mellitus without complications; Z87.891 Personal history of nicotine dependence; Z85.51 Personal history of malignant neoplasm of bladder; W06.XXXA Fall from bed, initial encounter; Y93.89 Activity, other specified; Y92.009 Unspecified place in unspecified non-institutional (private) residence as the place of occurrence of the external cause; Y99.8 Other external cause status
CPT/HCPCS: 12013; 70450; 72125; 90471; 90715; 96372; 99285; J1885